=== PATIENT | female | born 1970 | race Hispanic/Latino ===

== ENCOUNTER → 2017-08-10 | Day surgery (SDC) | payer OTHER ==
[2017-08-09 12:26] LABS: ANION GAP 11.9 mmol/L (8-16); BLOOD UREA NITROGEN 15 mg/dL (7-26); BUN/CREATININE RATIO 19 (6-25); CALCIUM 9.3 mg/dL (8.4-10.2); CARBON DIOXIDE 26 mmol/L (22-29); CHLORIDE 105 mmol/L (98-107); CREATININE, SERUM 0.77 mg/dL (0.57-1.11); EST GLOMERULAR FILTRATION RATE > 60 ML/MIN (60-); GLUCOSE 102 mg/dL (74-118); POTASSIUM 3.9 mmol/L (3.5-5.1); SODIUM 139 mmol/L (136-145)
[~2017-08-10] MED LIST: ACETAMINOPHEN 1000 MG/100 ML IV ONE; AMITRIPTYLINE H25 MG PO; AZELASTINE137 MCG/0.; BUPIVACAINE HCL 0.5% INJ 30 ML VIAL INJ ONE; CEFAZOLIN SOD 1 GM VIAL ONE; CELEBREX100 MG PO; CETIRIZINE HCL10 MG PO; CYCLOBENZAPRINE10 MG PO; DEXAMETHASONE SOD PHOS INJ 4 MG/ML VIAL ONE; FENTANYL CITRATE/PF 100MCG/2 ML INJ ONE; FLUTICASONE; LIDOCAINE HCL 2% LOCAL INJ 5 ML SDV VIAL INJ ONE; LISINOPRIL-HCT1 EAC1 PO; MIDAZOLAM HCL 2 MG/2 ML VIAL ONE; MONTELUKAST SOD10 MG PO; MUPIROCIN 2% OINT 22 GM TUBE ONE; OMEPRAZOLE40 MG PO; ONDANSETRON HCL INJ 2 MG/ML VIAL ONE; PROPOFOL IV EMULSION 10 MG/ML 20 ML VIAL ONE; SEVOFLURANE INHAL SOLN 250 ML PEN BTL ONE
--- NOTE | 2017-08-10 12:54 | Operative Report ---
DATE OF PROCEDURE: August 10, 2017 ACCOUNTING ADMINISTRATIVE ASSISTANT: None. PREOPERATIVE DIAGNOSES 1. Secondary tear of the anterior talofibular ligament. 2. 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 POSTOPERATIVE DIAGNOSES 1. Secondary tear of the anterior talofibular ligament. 2. 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 PROCEDURES 1. Repair of anterior talofibular ligament. 2. Repair of posterior talofibular ligament with reconstruction utilizing InternalBrace. 3. Use of a posterior splint. PATHOLOGY: None. ANESTHESIA: General anesthetic. HEMOSTASIS: Pneumatic thigh tourniquet at 350 mmHg. ESTIMATED BLOOD LOSS: Less than 10 mL. MATERIALS 1. [employer] SonicAnchor, lot number [id number], expiration date 01/22/2017. 2. Another SonicAnchor 2.5 mm x 10 mm, lot number [id number], expiration date 01/01/2018. 3. [employer] Bioraptor knotless suture anchor, expiration 07/20/2021. 4. InternalBrace and Ultratape from [employer]. PROCEDURE IN DETAIL: Under mild sedation, the patient was brought to the operating room and placed on the operating table in the supine position. Following IV sedation, anesthesia was obtained with a general anesthetic. At this point, the foot was scrubbed, prepped and draped in the usual aseptic manner. It was then lowered to the table. At this point, under use of intraop fluoroscopy, the foot was distracted in order to ensure the instability at the ankle joint. There was a posterior and anterior drawer test with a large degree of instability. There was also positive talar tilt test. Attention was the directed to the lateral aspect of the right foot where a curvilinear incision was made overlying the insertion from the anterior talofibular ligament curving down to the calcaneofibular ligament. The incision was deepened via sharp and blunt dissection, taking care to retract and cauterize neurovascular structures as necessary. It deepened down to the level of the ligaments. At this point, there was noted to be anterior part of the anterior talofibular ligament and the posterior part of the posterior talofibular ligament. The anterior part was noted to be intact. The posterior part was noted to be very denuded. The calcaneofibular ligament at this point was noted to be intact. Attention was then directed through the incision, taking it down to the level of the ligaments. The ligaments were never reflected off of the fibula, the anterior talofibular ligament and posterior talofibular ligament. At this point, the anterior talofibular ligament was reattached in a [id number] position, rasping the fibula in order to promote adhesion of the ligament back into the fibula. The posterior talofibular ligament was noted to be fully denuded. A brace Ultratape from [employer] was used for this. The 1st anchor was used for the [id number] for the anterior talofibular ligament. The 2nd SonicAnchor was then used to reconstruct the ligament utilizing Ultratape. A SonicAnchor was put into the level of the fibula. The third level was put into the level of the talus. It was tensioned while under anatomical alignment with the foot in very slight inversion. There was noted to be adequate compression clinically and with the use of intraop fluoroscopy. At this point, the ankle was distracted. At this point, the anterior drawer sign was negative. The talar tilt was also negative under the use of intraop fluoroscopy. Once there was noted to be adequate repair of the ligament, the area was then flushed with copious amounts of normal sterile saline solution. The extensor retinaculum was then reused in order to augment the repair. The areas were then closed, closing the deepest layer with 3-0 Vicryl, 4-0 Vicryl, and 4-0 nylon. A clean dressing was applied consisting of Adaptic ointment, 4 x 4's, Kerlix, Webril. A posterior splint was applied and was secured utilizing an Marcello bandage. Before dressing, 10 mL of 0.5% Marcaine plain were given postop. The pneumatic ankle tourniquet was deflated. There was noted to be hyperemic response to all the digits. The patient tolerated the procedure and anesthesia well without complications. She was transported to the recovery room with vital signs stable and vascular status intact to both feet. The patient will be discharged home when she meets criteria. They were given instructions to be strictly nonweightbearing, to ice and elevate the foot while at rest, follow up with me in the office and to call the office if any questions, concerns or any problems arise. Job#: [id number]
== END | disposition home or self-care (01) ==
LOC: OR 10:37
PROVIDERS: ATTEND Podiatrist Foot & Ankle Surgery
DX: S93.491A Sprain of other ligament of right ankle, initial encounter (principal); S93.411A Sprain of calcaneofibular ligament of right ankle, initial encounter; M25.371 Other instability, right ankle; I10 Essential (primary) hypertension; J45.909 Unspecified asthma, uncomplicated; X58.XXXA Exposure to other specified factors, initial encounter; Z01.810 Encounter for preprocedural cardiovascular examination; Z01.812 Encounter for preprocedural laboratory examination; M24.271 Disorder of ligament, right ankle
CPT/HCPCS: 27698 ×2; 36415; 76001; 80048; 81025; 93005; J0690; J1100; J2001; J2250; J2405